=== PATIENT | male | born 1995 | race Caucasian/White ===

== ENCOUNTER 2022-01-08 10:30 | Emergency (ER) | payer OTHER, SELFPAY ==
[2022-01-08 10:40] VITALS: BP 129/87; PULSE 90; RESP 18; TEMP 36.9; O2SAT 98; BMI 35.9
--- NOTE | 2022-01-08 10:53 | ED_ITS ---
HPI - Wound/Laceration General Chief Complaint: Wound/Laceration Stated Complaint: thumb laceration Time Seen by Provider: 01/08/22 10:53 Source: patient Mode of arrival: ambulatory Limitations: no limitations History of Present Illness HPI narrative: 26 y/o male presents to the ER for evaluation of a laceration to the left thumb he sustained 2 days ago while he was cutting kielbasa at work. He reports he was able to control the bleeding and cleaned it out well. He admits he should have come in for sutures at the time but thought it would heal on its own by now. He would like sutures now. He denies any active bleeding, redness or drainage. 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 Onset (ago): day(s) (2) Extremity Location: left: hand (distal thumb) Place: work Patient tetanus UTD: Yes Context: accidental Related Data Allergies Allergy/AdvReac Type Severity Reaction Status Date / Time bee pollen [Bee Stings] Allergy Unknown THROAT Verified 01/08/22 10:43 CLOSES Review of Systems Review of Systems: Constitutional: No Fever, No Chills Gastrointestinal: No Nausea, No Vomiting Musculoskeletal: No joint pain, No Myalgias Skin: +Skin Lesions, No rash Neuro: No Weakness, No Numbness Psych: No Anxiety/Panic Heme/Lymph: No Bruising, No Lymphadenopathy PMFSH Past Medical History Surgical History (Updated 07/11/20 @ 07:34 by NICHELLE Salter) No pertinent past surgical history Family History Family History (Updated 07/11/20 @ 07:35 by NICHELLE Salter) Father Diabetes Mother No problems noted. Paternal Grandmother Breast cancer Social History Social History Advance Directives: No Advance Directives Information Provided: No Physical Exam Vital Signs: Vital Signs: Last Vital Signs Temp 98.4 F 01/08/22 10:40 Pulse 90 01/08/22 10:40 Resp 18 01/08/22 10:40 BP 129/87 01/08/22 10:40 Pulse Ox 98 01/08/22 10:40 BMI result Body Mass Index 35.9 Appearance: Alert. Oriented X3. No acute distress. HEENT: normal inspection CVS: Normal heart rate and rhythm. Pulses normal. Respiratory: No respiratory distress. Skin: Skin warm and dry. Normal skin color. Normal skin turgor. No rashes. Extremities: left lateral thumb with a 2.5 cm linear laceration with some dried blood distally, no active bleeding. no erythema or drainge. normal flexion and extension. cap refill <3 sec. Neuro: Oriented X 3. No motor deficit. No sensory deficit. Course Course Course Narrative: 26 y/o male presents to the ER for a left thumb lac 2 days old. No signs of infection. Given delayed presentation no role for suture closure. Would was cleaned and steri strips applied. Wound care discussed. Stable for d/c home. Critical Care Time Critical Care Time Critical Care Time: No Discharge Plan Discharge Clinical Impression: Laceration Patient Disposition: Home, Self-Care Instructions: Laceration Without Closure (ED) Additional Instructions: Keep wound clean and covered. Do not submerge in water, no swimming. If you develop signs of infection including increased pain, swelling, redness or drainage of pus come back to the ER for further evaluation. Stand Alone Forms: Work/School Release Interventions: ED Discharge Assessment Last Done: 01/08/22 11:09 Discharge Date/Time: 01/08/22 11:10
== END 2022-01-08 11:10 | disposition home or self-care (01) ==
PROVIDERS: Emergency Provider Emergency Medicine; PCP Physician Assistant
DX: S61.012A Laceration without foreign body of left thumb without damage to nail, initial encounter (principal); W26.0XXA Contact with knife, initial encounter; Y93.G1 Activity, food preparation and clean up; Y92.9 Unspecified place or not applicable; Y99.9 Unspecified external cause status
CPT/HCPCS: 99283